=== PATIENT | male | born 1940 | race Two or more races ===

== ENCOUNTER 2017-12-05 11:24 | Emergency (ER) | payer OTHER, MEDICARE ==
[~2017-12-05] VITALS: Ht 175.3 cm; Wt 79.8 kg
[2017-12-05 11:32] VITALS: Ht 175.3 cm; Wt 79.8 kg
[2017-12-05 16:26] VITALS: BP 150/77
== END 2017-12-05 16:26 | disposition home or self-care (01) ==
LOC: ED 11:24
DX: S43.402A Unspecified sprain of left shoulder joint, initial encounter (principal); S13.9XXA Sprain of joints and ligaments of unspecified parts of neck, initial encounter; S50.312A Abrasion of left elbow, initial encounter; I10 Essential (primary) hypertension; M19.012 Primary osteoarthritis, left shoulder; V43.52XA Car driver injured in collision with other type car in traffic accident, initial encounter; Y93.I9 Activity, other involving external motion; Y92.89 Other specified places as the place of occurrence of the external cause; Y99.8 Other external cause status
CPT/HCPCS: 90715